=== PATIENT | female | born 1975 ===

== ENCOUNTER 2023-01-04 08:45 | Inpatient (IN) | payer OTHER ==
[~2023-01-04] VITALS: Ht 157.5 cm; Wt 63.5 kg
[2023-01-09 07:42] LABS: HEMATOCRIT 35.3 % (36.0-45.00); HEMOGLOBIN 11.8 g/dL (12.0-15.00); MEAN CELL VOLUME 79.1 fL (80.00-100.00); MEAN CORPUSCULAR HEMOGLOBIN 26.5 pg (27.00-32.0); MEAN CORPUSCULAR HGB CONC 33.5 g/dl (32.0-36.0); PLATELET COUNT 240 K/uL (150-450); RED BLOOD COUNT 4.46 M/uL (4.00-6.00); RED CELL DISTRIBUTION WIDTH 13.8 % (11.5-14.5)
[2023-01-09 07:54] LABS: ALBUMIN 2.9 gm/dL (3.4-5.0); CALCIUM 8.2 mg/dL (8.5-10.1); CREATININE SERUM 0.48 mg/dL (0.55-1.02); GFR 138.63; PHOSPHOROUS 2.7 mg/dL (2.5-4.9); POTASSIUM 3.99 mEq/L (3.5-5.1)
[2023-01-11 07:01] LABS: CALCIUM 7.9 mg/dL (8.5-10.1); CREATININE SERUM 0.41 mg/dL (0.55-1.02); GFR 166.28; MAGNESIUM 1.7 mg/dL (1.8-2.4); POTASSIUM 3.72 mEq/L (3.5-5.1)
[2023-01-11] MEDS ORDERED: HYOSCYAMINE0.125 M1 SL (08:25)
== END 2023-01-11 12:43 | disposition home or self-care (01) | DRG 329 ==
LOC: O/R 01-08 05:24 → SURH 01-08 08:45
PROVIDERS: Internal Medicine; ADMIT Surgery; ATTEND Surgery
PROC: 0DBP4ZZ Excision of Rectum, Percutaneous Endoscopic Approach (ICD-10-PCS; 2023-01-08)
PROC: 0DNW4ZZ Release Peritoneum, Percutaneous Endoscopic Approach (ICD-10-PCS; 2023-01-08)
PROC: 0DBU4ZZ Excision of Omentum, Percutaneous Endoscopic Approach (ICD-10-PCS; 2023-01-08)
PROC: 0DB84ZZ Excision of Small Intestine, Percutaneous Endoscopic Approach (ICD-10-PCS; 2023-01-08)
PROC: 0DN84ZZ Release Small Intestine, Percutaneous Endoscopic Approach (ICD-10-PCS; 2023-01-08)
PROC: 0DTN4ZZ Resection of Sigmoid Colon, Percutaneous Endoscopic Approach (ICD-10-PCS; principal; 2023-01-08 09:30)
DX: K57.20 Diverticulitis of large intestine with perforation and abscess without bleeding (principal); K65.1 Peritoneal abscess; K64.8 Other hemorrhoids; K66.0 Peritoneal adhesions (postprocedural) (postinfection)

== ENCOUNTER 2025-01-12 09:00 | Day surgery (SDC) | payer OTHER ==
[2025-01-05 13:34] VITALS: BP 104/71
[~2025-01-12] VITALS: Ht 157.5 cm; Wt 65.8 kg
[~2025-01-12 09:00] MED LIST: HYOSCYAMINE0.125 M1 SL
[2025-01-12] MEDS ORDERED: CEFOXITIN SODIUM 2,000 MG VIAL IV ONE (11:10)
[2025-01-12] MEDS ORDERED: SUGAMMADEX SODIUM 200 MG/2 ML VIAL IV ONE (13:01)
[2025-01-12] MEDS ORDERED: TRAMADOL HCL50 MG PO (14:03)
[2025-01-12] MEDS ORDERED: PEPCID20 MG PO (14:04)
[2025-01-12] MEDS ORDERED: HYOSCYAMINE0.125 M1 SL (14:04)
== END 2025-01-12 15:55 | disposition home or self-care (01) ==
LOC: CIR.AMB 09:00
PROVIDERS: ATTEND Surgery
DX: K80.10 Calculus of gallbladder with chronic cholecystitis without obstruction (principal)